=== PATIENT | male | born 1975 | race African-American/Black ===

== ENCOUNTER 2019-02-04 12:52 | Emergency (ER) | payer OTHER ==
[2019-02-04 12:58] VITALS: BP 126/84; PULSE 64; RESP 16; TEMP 98.1
[2019-02-04] MEDS ORDERED: PROPARACAINE 0.5% OPHTH DROPS 15 ML BTL LEFT EYE STA (13:03)
[2019-02-04] MEDS ORDERED: TOBRAMYCIN 0.3% OPHTH DROPS 5 ML BTL LEFT EYE STA (13:03)
--- NOTE | 2019-02-04 13:09 | ED ---
Eye Problem HPI - General Chief complaint: Eye Problems Stated complaint: visual disturbance Time Seen by Provider: 02/04/19 13:01 Source: patient, RN notes reviewed Mode of arrival: ambulatory Limitations: no limitations - History of Present Illness Initial comments: 43-year-old male presents emergency Department chief complaint left eye her dictation. Patient states that he was cutting tile one refill and states he felt that he gets and then in his eye. Patient states has progressively worsened. Patient states that his eye has been tearing, sensitive to light and states that it affects his vision. Patient states when it's not draining that he has no change in vision. Patient states his tetanus is up-to-date within last 5 years. Denies any other complaints at this time. - Related Data Allergies Allergy/AdvReac Type Severity Reaction Status Date / Time No Known Allergies Allergy Verified 02/04/19 12:58 Review of Systems ROS Statement: Those systems with pertinent positive or pertinent negative responses have been documented in the HPI. ROS Other: All systems not noted in ROS Statement are negative. Past Medical History Past Medical History: No Reported History History of Any Multi-Drug Resistant Organisms: None Reported Past Surgical History: Orthopedic Surgery Additional Past Surgical History / Comment(s): FEMUR SURGERY, LIVER LACERATION Past Psychological History: No Psychological Hx Reported Smoking Status: Never smoker Past Alcohol Use History: None Reported Past Drug Use History: None Reported General Exam Limitations: no limitations General appearance: alert, in no apparent distress Head exam: Present: atraumatic, normocephalic, normal inspection Eye exam: Present: PERRL, EOMI, other (To address of Phenergan were used to anesthetize left side, complete relief of symptoms, was lamp and flourscein dye were used to evaluate, uptake in the 5 o'clock position no foreign body noted). Absent: normal appearance (In the 5 o'clock position there is an white discoloration noted), scleral icterus, conjunctival injection, periorbital swelling ENT exam: Present: normal exam, normal oropharynx, mucous membranes moist Neck exam: Present: normal inspection, full ROM. Absent: tenderness, meningismus, lymphadenopathy Respiratory exam: Present: normal lung sounds bilaterally. Absent: respiratory distress, wheezes, rales, rhonchi, stridor Cardiovascular Exam: Present: regular rate, normal rhythm, normal heart sounds. Absent: systolic murmur, diastolic murmur, rubs, gallop, clicks Course Vital Signs 02/04/19 12:55 Temperature 98.1 F Pulse Rate 64 Respiratory 16 Rate Blood Pressure 126/84 O2 Sat by Pulse 100 Oximetry Medical Decision Making - Medical Decision Making 43-year-old male presented for left eye irritation. Patient had an injury 1 week ago. There is no evidence of foreign bite this time though there is some discoloration of the cornea and concern for corneal ulcer. Patient will be started on Tobrex eyedrops 1 drop every hour this first 24 hours, every 2 hours after for 24 hours and then every 4 hours after. Patient will follow-up with ophthalmology. Strict return parameters were discussed. Tetanus is up-to-date Disposition Clinical Impression: Corneal ulcer Disposition: HOME SELF-CARE Condition: Stable Instructions (If sedation given, give patient instructions): Corneal Ulcer (ED) Additional Instructions: Please return to the Emergency Department if symptoms worsen or any other concerns. Use Tobrex eyedrops 1 drop every hour. A 24 hours, 1 drop every 2 hours for next 24, 1 drop every 4 hours after that Is patient prescribed a controlled substance at d/c from ED?: No Referrals: None,Stated [Primary Care Provider] - 1-2 days Dior Zhang MD [STAFF PHYSICIAN] - 1-2 days Time of Disposition: 13:39
== END 2019-02-04 13:50 | disposition home or self-care (01) ==
LOC: EC 12:52
DX: H16.002 Unspecified corneal ulcer, left eye (principal)
CPT/HCPCS: 99283